=== PATIENT | female | born 2000 | race African-American/Black ===

== ENCOUNTER 2019-09-10 20:29 | Emergency (ER) | payer OTHER ==
[2019-09-10 20:41] VITALS: BP 132/80; PULSE 87; TEMP 99.2; BMI 40.3
--- NOTE | 2019-09-10 21:17 | PDOC ---
Documentation entered by Shaun Craft SCRIBE, acting as scribe for Kathy Sams MD. Kathy Sams MD: This documentation has been prepared by the Venancio lozano Nirvannie, SCRIBE, under my direction and personally reviewed by me in its entirety. I confirm that the documentation accurately reflects all work, treatment, procedures, and medical decision making performed by me. History of Present Illness - General Chief Complaint: Palpitations Stated Complaint: HEART FEELS FUNNY Time Seen by Provider: 09/10/19 20:52 History Source: Patient Exam Limitations: No Limitations - History of Present Illness Initial Comments: 09/10/19 21:08 HPI: The patient is a 18 year old female, with a significant past medical history of asthma, who presents to the emergency department with 1.5 days of chest discomfort. As per patient, approximately 20 minutes after taking NyQuil last night for cold-like symptoms she began to experience an approximately 1/10 pressure-like sensation to the chest. She approximately an hour prior to her arrival her pain worsened to a 4/10, prompting her arrival to the ED. She notes taking Ibuprofen earlier today for her symptoms. Patient notes to have been evaluated once in the past for similar symptoms at [facility] ER at which time her labs and EKG had no pertinent findings. She denies any personal or familial history of venous thrombosis. She denies any control usage. She denies any calf pain. She denies recent shortness of breath, lightheadedness, headache, or dizziness. She denies recent dysuria, frequency, urgency or hematuria. PAST MEDICAL HISTORY: Asthma. PAST SURGICAL HISTORY: no significant history FAMILY HISTORY: no pertinent history SOCIAL HISTORY: Pt lives with family and is employed. MEDICATIONS: reviewed ALLERGIES: As per nursing notes ROS: General: No fevers or chills, no weakness, no weight loss HEENT: No change in vision. No sore throat,. No ear pain CardioVascular: +Chest discomfort. No shortness of breath Respiratory:No cough, or wheezing. Gastrointestinal: no nausea, vomiting, diarrhea or constipation, No rectal bleeding Genitourinary: No dysuria, hematuria, or frequency Musculoskeletal: No joint or muscle pain or swelling Neurologic: No headache, vertigo, dizziness or loss of consciousness Psychiatric: nor depression Skin: No rashes or easy bruising Endocrine: no increased thirst or abnormal weight change Allergic: no skin or latex allergy All other systems reviewed and normal Physical Exam: General: Well-nourished well-developed individual, no acute distress HEENT: Throat: Normal, tonsils normal, no erythema or exudate Neck: Supple, no meningeal signs, no lymphadenopathy Eyes::Pupils equal reactive and round, extraocular motion intact Chest: Nontender to palpation Cardiac: S1-S2 normal, regular rate and rhythm, no murmurs rubs or gallops Respiratory: Lungs clear to auscultation bilateral Abdomen: Soft, nondistended, normal bowel sounds, nontender to palpation diffusely Extremities: Warm, dry, no cyanosis, clubbing, or edema Skin: No rashes Neuro: Alert and oriented x3, nonfocal exam, grossly intact, normal gait Psych: Normal mood and affect Assessment and plan: This is a 18-year-old female who comes in complaining of some chest discomfort. Patient has history of similar symptoms multiple times in the past for which she has been to the emergency department and had a work- up including a normal cardiogram in the past. An EKG was done here which showed normal sinus rhythm at a rate of [address]-T wave changes abnormal EKG Patient referred back to her primary care doctor and was advised to discontinue any use of stimulants such as caffeine and decongestants. 09/10/19 21:15 Past History - Past Medical History Allergies/Adverse Reactions: Allergies Allergy/AdvReac Type Severity Reaction Status Date / Time No Known Allergies Allergy Verified 09/10/19 20:35 Home Medications: Ambulatory Orders Fluticasone Propionate [Flovent Hfa] 220 mcg IH BID PRN 09/10/19 Asthma: Yes (MILD) COPD: No - Immunization History Immunization Up to Date: Yes - Psycho Social/Smoking Cessation Hx Smoking History: Never smoked Hx Alcohol Use: No Drug/Substance Use Hx: No *Physical Exam - Vital Signs Last Vital Signs Temp Pulse Resp BP Pulse Ox 99.2 F 87 16 132/80 100 09/10/19 20:35 09/10/19 20:35 09/10/19 20:35 09/10/19 20:35 09/10/19 20:35 Discharge - Discharge Information Problems reviewed: Yes Clinical Impression/Diagnosis: Palpitations with regular cardiac rhythm Condition: Good Disposition: HOME - Admission No - Follow up/Referral - Patient Discharge Instructions Additional Instructions: Your cardiogram was normal. Avoid use of stimulants such as caffeine in coffee tea or sodas. Also avoid use of decongestants such as DayQuil and NyQuil. Return to the emergency department immediately with ANY new, persistent or worsening symptoms. Continue any medications as previously prescribed by your physician. You should follow up with your primary doctor as soon as possible regarding today's emergency department visit. . Please make sure your doctor reviews the results of your emergency evaluation. Thank you for coming to the Emergency Department today for your care. It was a pleasure to see you today. Please note that your evaluation is INCOMPLETE until you follow-up with your doctor. - Post Discharge Activity
--- NOTE | 2019-09-11 10:35 | EKG ---
Test Reason : Blood Pressure : / mmHG Vent. Rate : 072 BPM Atrial Rate : 072 BPM P-R Int : 160 ms QRS Dur : 078 ms QT Int : 400 ms P-R-T Axes : 043 057 057 degrees QTc Int : 438 ms NORMAL SINUS RHYTHM NORMAL ECG NO PREVIOUS ECGS AVAILABLE Confirmed by LATA KENT MD ([id number]) on 09/11/2019 10:35:34 AM Referred By: MD ROSE Confirmed By:LATA KENT MD
== END 2019-09-10 21:22 | disposition home or self-care (01) ==
LOC: FER 20:29
DX: R00.2 Palpitations (principal); J45.909 Unspecified asthma, uncomplicated
CPT/HCPCS: 93005; 99283-25